=== PATIENT | female | born 1995 | race Caucasian/White ===

== ENCOUNTER 2019-09-08 14:12 | Emergency (ER) | payer MEDICAID ==
[~2019-09-08] VITALS: Ht 165.1 cm; Wt 70.8 kg
[2019-09-08 15:56] LABS: BASOPHILS # (AUTO) 0.1 X10'3 (0-0.2); BASOPHILS % (AUTO) 0.7 % (0-1); EOSINOPHILS # (AUTO) 0.4 X10'3 (0-0.9); EOSINOPHILS % (AUTO) 4.1 % (0-6); HEMATOCRIT 37.2 % (35.0-45.0); HEMOGLOBIN 12.4 g/dl (12.0-16.0); LYMPHOCYTES # (AUTO) 2.6 X10'3 (1.1-4.8); LYMPHOCYTES % (AUTO) 26.6 % (21-51); MEAN CORPUSCULAR HEMOGLOBIN 31.2 PG (27.0-31.0); MEAN CORPUSCULAR HGB CONC 33.3 g/dL (33.0-36.5); MEAN CORPUSCULAR VOLUME 93.9 FL (78-98); MONOCYTES # (AUTO) 0.7 X10'3 (0-0.9); MONOCYTES % (AUTO) 7.6 % (2-12); PLATELET COUNT 328 X10'3 (140-440); RED BLOOD COUNT 3.97 X10'6 (4.20-5.60); RED CELL DISTRIBUTION WIDTH 14.2 % (11.5-14.5); WHITE BLOOD COUNT 9.8 X10'3 (4.5-11.0)
[2019-09-08 16:06] LABS: URINE HCG NEGATIVE (NEG)
[2019-09-08 16:10] LABS: PARTIAL THROMBOPLASTIN TIME 29 SECONDS (22-32)
[2019-09-08 16:52] VITALS: BP 99/68
--- NOTE | 2019-09-08 16:55 | NUR ---
pelvic setup done ,pt vitals checked within normal limits,pt denies any concern at this time.
== END 2019-09-08 17:39 | disposition home or self-care (01) ==
LOC: ER 14:12
DX: O20.0 Threatened abortion (principal); N93.8 Other specified abnormal uterine and vaginal bleeding; R53.83 Other fatigue; R42 Dizziness and giddiness
CPT/HCPCS: 36415; 81025; 85025; 85610; 85730; 86885; 86900; 86901; 93005; 99284

== ENCOUNTER 2020-03-15 21:24 | Emergency (ER) | payer MEDICAID ==
[~2020-03-15] VITALS: Ht 165.1 cm; Wt 89.4 kg
[2020-03-15] MEDS ORDERED: acetaminophen 325mg tablet PO ONE (22:35)
[2020-03-15 23:02] LABS: CLARITY,URINE CLEAR (Clear); COLOR,URINE YELLOW (Yellow); GLUCOSE, URINE NEGATIVE (Neg); KETONES,URINE NEGATIVE (Neg); LEUKOCYTE ESTERASE ,URINE NEGATIVE (Neg); NITRITES, URINE NEGATIVE (Neg); OCCULT BLOOD,URINE NEGATIVE (Neg); PROTEIN,URINE NEGATIVE (Neg); UROBILINOGEN,URINE 0.2 E.U/dL (0.2-1.0)
[2020-03-15 23:03] LABS: BASOPHILS # (AUTO) 0.2 X10'3 (0-0.2); BASOPHILS % (AUTO) 1.7 % (0-1); EOSINOPHILS # (AUTO) 0.2 X10'3 (0-0.9); EOSINOPHILS % (AUTO) 1.5 % (0-6); HEMATOCRIT 34.3 % (35.0-45.0); HEMOGLOBIN 11.5 g/dl (12.0-16.0); LYMPHOCYTES # (AUTO) 1.9 X10'3 (1.1-4.8); LYMPHOCYTES % (AUTO) 16.1 % (21-51); MEAN CORPUSCULAR HEMOGLOBIN 29.8 PG (27.0-31.0); MEAN CORPUSCULAR HGB CONC 33.5 g/dL (33.0-36.5); MONOCYTES % (AUTO) 8.7 % (2-12); NEUTROPHILS # (AUTO) 8.4 X10'3 (1.8-7.7); PLATELET COUNT 304 X10'3 (140-440); RED BLOOD COUNT 3.86 X10'6 (4.20-5.60); RED CELL DISTRIBUTION WIDTH 15.2 % (11.5-14.5); WHITE BLOOD COUNT 11.7 X10'3 (4.5-11.0)
[2020-03-15 23:07] LABS: UA COLLECTION TYPE NON-SPECIFIED
[2020-03-15 23:11] LABS: ALANINE AMINOTRANSFERASE 18 U/L (12-78); ALBUMIN 3.7 G/DL (3.4-5.0); ALKALINE PHOSPHATASE 51 IU/L (46-116); ANION GAP 10 (8-16); ASPARTATE AMINO TRANSFERASE 15 U/L (10-37); BILIRUBIN,TOTAL 0.2 MG/DL (0.1-1.0); BLOOD UREA NITROGEN 9 MG/DL (7-18); BUN/CREATININE RATIO 12.7 (6.6-38.0); CALCIUM 9.2 MG/DL (8.5-10.1); CHLORIDE 102 MMOL/L (99-107); CREATININE 0.71 MG/DL (0.40-0.90); GLUCOSE 71 MG/DL (70-104); POTASSIUM 3.8 MMOL/L (3.5-5.1); SODIUM 139 MMOL/L (135-145); TOTAL CARBON DIOXIDE 27.4 MMOL/L (24-32); TOTAL PROTEIN 7.5 G/DL (6.4-8.2); eGFR > 90 ML/MIN
[2020-03-15 23:34] LABS: BETA HCG,QUANTITATIVE 162167 mIU/ml
[2020-03-16 00:30] VITALS: BP 125/78
== END 2020-03-16 00:39 | disposition home or self-care (01) ==
LOC: ER 21:25
DX: O20.9 Hemorrhage in early pregnancy, unspecified (principal); O30.001 Twin pregnancy, unspecified number of placenta and unspecified number of amniotic sacs, first trimester; Z3A.01 Less than 8 weeks gestation of pregnancy
CPT/HCPCS: 36415; 76801; 76802; 80053; 81003; 84702; 85025; 85610; 86900; 86901; 93976; 99284

== ENCOUNTER 2024-03-10 18:27 | Emergency (ER) | payer MEDICAID ==
[~2024-03-10] VITALS: Ht 165.1 cm; Wt 124.7 kg
[2024-03-10 18:47] LABS: URINE HCG NEGATIVE (NEG)
[2024-03-10 18:50] LABS: BILIRUBIN,URINE NEGATIVE (Neg); CLARITY,URINE CLEAR (Clear); COLOR,URINE YELLOW (Yellow); GLUCOSE, URINE NEGATIVE (Neg); KETONES,URINE NEGATIVE (Neg); LEUKOCYTE ESTERASE ,URINE NEGATIVE (Neg); NITRITES, URINE NEGATIVE (Neg); OCCULT BLOOD,URINE NEGATIVE (Neg); PROTEIN,URINE NEGATIVE (Neg); UROBILINOGEN,URINE 0.2 E.U/dL (0.2-1.0)
[2024-03-10 18:56] LABS: UA COLLECTION TYPE CLN CATCH MIDSTREAM
[2024-03-10 19:08] LABS: BASOPHILS # (AUTO) 0.1 X10'3 (0-0.2); EOSINOPHILS # (AUTO) 0.6 X10'3 (0-0.9); MEAN PLATELET VOLUME 7.9 FL (7.4-10.4); MONOCYTES # (AUTO) 0.7 X10'3 (0-0.9); RED CELL DISTRIBUTION WIDTH 15.1 % (11.5-14.5); WHITE BLOOD COUNT 10.3 X10'3 (4.5-11.0)
[2024-03-10 19:09] LABS: BASOPHILS % (AUTO) 0.6 % (0-1); EOSINOPHILS % (AUTO) 6.1 % (0-6); HEMATOCRIT 39.7 % (35.0-45.0); HEMOGLOBIN 13.4 g/dl (12.0-16.0); LYMPHOCYTES # (AUTO) 3.4 X10'3 (1.1-4.8); LYMPHOCYTES % (AUTO) 32.7 % (21-51); MEAN CORPUSCULAR HEMOGLOBIN 31.2 PG (27.0-31.0); MEAN CORPUSCULAR HGB CONC 33.8 g/dL (33.0-36.5); MEAN CORPUSCULAR VOLUME 92.3 FL (78-98); MONOCYTES % (AUTO) 6.6 % (2-12); NEUTROPHILS # (AUTO) 5.6 X10'3 (1.8-7.7); PLATELET COUNT 326 X10'3 (140-440)
[2024-03-10 19:23] LABS: ALANINE AMINOTRANSFERASE 25 U/L (12-78); ALBUMIN 3.7 G/DL (3.4-5.0); ALBUMIN/GLOBULIN RATIO 0.8 (1.1-1.5); ALKALINE PHOSPHATASE 81 IU/L (46-116); ANION GAP 11 (8-16); BILIRUBIN,TOTAL 0.3 MG/DL (0.1-1.0); BLOOD UREA NITROGEN 10 MG/DL (7-18); BUN/CREATININE RATIO 12.7 (10.0-20.0); CALCIUM 9.5 MG/DL (8.5-10.1); CHLORIDE 101 MMOL/L (99-107); CREATININE 0.79 MG/DL (0.40-0.90); GLUCOSE 122 MG/DL (70-104); LIPASE 113 U/L (16-77); SODIUM 137 MMOL/L (135-145); TOTAL CARBON DIOXIDE 24.8 MMOL/L (24-32); TOTAL PROTEIN 8.3 G/DL (6.4-8.2); eCRCL 97 ML/MIN; eGFR 88 ML/MIN
[2024-03-10 19:28] LABS: ASPARTATE AMINO TRANSFERASE 26 U/L (10-37); POTASSIUM 3.8 MMOL/L (3.5-5.1)
[2024-03-10 19:29] LABS: LARGE PLATELETS FEW; PLATELET ESTIMATE NORMAL
[2024-03-10] MEDS: metoclopramide 5 mg/ml inj IV ONE (22:11)
[2024-03-10] MEDS: ketorolac trometh 30MG/ML vial 30 MG/ML VIAL IV ONE (22:58)
[2024-03-10] MEDS: normal saline 1000ML IV soln IVB ONE (22:58)
[2024-03-11] MEDS ORDERED: DICY20TA18 PO (00:40)
[2024-03-11] MEDS ORDERED: HYDR-3965 PO (00:40)
[2024-03-11 01:08] VITALS: BP 103/62; PULSE 73; RESP 18; TEMP 98.3; O2SAT 99
== END 2024-03-11 01:00 | disposition home or self-care (01) ==
LOC: ER 18:27
DX: R10.31 Right lower quadrant pain (principal); Z87.891 Personal history of nicotine dependence
CPT/HCPCS: 36415; 76856; 80053; 81003; 81025; 83690; 85008; 85025; 93976; 96361; 96374; 96375; 99285; J1885; J2765; J7030

== ENCOUNTER 2024-09-16 14:33 | Emergency (ER) | payer MEDICAID ==
[~2024-09-16] VITALS: Ht 165.1 cm; Wt 131.3 kg
[~2024-09-16 14:33] MED LIST: DICY20TA18 PO
[2024-09-16 16:51] VITALS: BP 159/106; PULSE 98; RESP 18; TEMP 98.4; O2SAT 98
--- NOTE | 2024-09-16 16:56 | Physician Documentation ---
History of Present Illness ~ Chief Complaint: Leg Laceration Stated Complaint: LAC ON RT LEG Time Seen by MD: 16:54 OK to notify your PCP?: Yes Primary Medical Doctor: none Source: patient Mode of Arrival: POV Exam Limitations: no limitations HPI 28-year-old female with large scratch across the front side of her right domingo which happened a couple of hours ago.. She states that she got a piece of metal stuck in her shoe and when she tried to get it out it dropped and sliced her leg. Bleeding is completely stopped and she did clean it off right after it happened. She is unsure when her last tetanus shot was. No signs of infection at this time Tetanus Within 5 Years: Yes Medication Reconciliation Allergies: Coded Allergies: No Known Allergies (Unverified , 03/10/24) Scheduled Dicyclomine HCl (Dicyclomine HCl), 1 TAB PO Q8H Past Medical History Past Medical History: No Pertinent History Past Surgical History: noncontributory Alcohol Use: None Drug Use: none Lives with: S/O Lives In: Home Occupation: employed Physical Exam Vital Signs: Temperature: 98.4, Source: Temporal, Heart Rate: 98, Respiratory Rate: 18, BP: 159/106, Pulse Oximetry: 98, Weight: 131.300 Oxygen Flow Rate: 0 Progress Results/Orders Results/Orders Orders - STARR MERCER [employer] Tetanus/Pertuss/Diph Acell/Pf (Boostrix (09/16/24 16:55) Vital Signs 09/16/24 09/16/24 14:52 16:51 Temp 98.1 98.4 Pulse 98 Resp 18 B/P (MAP) 140/99 159/106 (123) Pulse Ox 99 98 O2 Flow Rate 0 Medical Decision Making Findings 28-year-old female presents for a scratched to the front side of her right domingo. This does not require any laceration closure or care. She is requesting a tetanus vaccine. We provided her with a tetanus vaccine while here in the department. She states it is not painful at this time but she is just worried as it was a néstor piece of metal. We discussed return instructions and follow up instructions as well. Differential Dx:Considerations: Include: Laceration, Hematoma, Retained foreign body Additional Comments Sepsis. Departure Disposition: 01 HOME / SELF CARE / HOMELESS Impression: Primary Impression: Abrasion Condition: Stable Discharge Instructions: Laceration Care, Adult Additional Instructions: Monitor for signs of infection such as increased redness, increased pain, pus like discharge, redness spreading up the leg or fevers and return immediately as you may need a secondary antibiotic. You were given a tetanus shot while here in the department. Follow up with her primary care provider if this does not heal and return back here for any new or worsening symptoms Referrals: NO PRIMARY CARE PROVIDER (PCP) Education Educated: Patient Educated regarding: diagnosis, treatment, prognosis, need for follow up Additional Comment Medical Screen Exam This patient recieved a medical screening examination. After reviewing the individual's medical complaints with presenting symptoms and performing an appropriate physical examination, it was determined that no immediate life- threatening emergency medical condition is present. This individual is also not a women having contractions. Signature Scribe Signature: . Attestation: Scribed for Starr Mercerp by Starr Gordon NP . 09/16/24 16:58 Parts of this note were created using [employer] voice recognition software [employer]. While efforts were made to correct any mistakes made by this voice recognition software program, nonsensical phrases may remain in this note. In addition, there may be errors and syntax, grammar, content and spelling. STARR MERCER [employer] Sep 16, 2024 16:56
[2024-09-16] MEDS: TETanus/Pertussis (Acell)/Diphther VAC/PF (Tdap-Adult) 0.5ml syringe IMVAC ONE (18:02)
== END 2024-09-16 18:13 | disposition home or self-care (01) ==
LOC: ER 14:34
DX: S80.811A Abrasion, right lower leg, initial encounter (principal); W26.8XXA Contact with other sharp object(s), not elsewhere classified, initial encounter; Y93.89 Activity, other specified; Y92.89 Other specified places as the place of occurrence of the external cause; Y99.8 Other external cause status
CPT/HCPCS: 90471; 90715; 99283